=== PATIENT | female | born 1955 | race Caucasian/White ===

== ENCOUNTER 2018-07-20 12:49 | Emergency (ER) | payer BC ==
[2018-07-20] MEDS ORDERED: ASPIRIN 81 MG CHEWABLE TAB PO ONE (13:00)
[2018-07-20 13:15] LABS: PLATELET COUNT 216 10^3/uL (150-400)
[2018-07-20 13:22] LABS: INR 1.01 (0.83-1.16); PROTIME(PATIENT) 13.5 SEC (12.0-15.0)
--- NOTE | 2018-07-20 14:47 | EDPHY ---
H & P Time Seen by Provider: 07/20/18 12:59 HPI/ROS: HPI History of pericarditis, chest pain. 63-year-old female by private vehicle with friend. This patient has a history of pericarditis. She is currently being managed by [facility]. She has been on colchicine. She has a history of renal cell carcinoma. She was taken off NSAIDs a couple of weeks ago. Her pain started to come back and she was put back on ibuprofen at 400 mg every 6 hr 5-6 days ago. She reports that she is now taking colchicine and ibuprofen. She reports that 4 days ago while she was bending over changing some curtains she had an exacerbation of her pericarditis pain. She states that this is the same pain she has had in the past. She reports that since that time her pain has been more persistent and at varying degrees of intensity. She reports the pain is worse when she is bending over. She wanted to see her car repossessor today regarding continued discomfort but was unable to get into their office and came here to be evaluated. At the time of my evaluation she is comfortable. She reports to me that she has a follow up with her car repossessor at [facility] next . ROS: Constitutional: No fever, no chills. No weakness. Eyes: No discharge. No changes in vision. ENT: No sore throat. No nasal congestion or rhinorrhea. Respiratory: No cough. Mild shortness of breath associated with her pain. Cardiac: As, no palpitations. Gastrointestinal: No abdominal pain, no vomiting, no diarrhea. Genitourinary: No hematuria. No dysuria or increased frequency with urination. Musculoskeletal: No back pain. No neck pain. No myalgias or arthralgias. Skin: No rashes. Neurological: No headache. No focal weakness or altered sensation. 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 As above. Social history: Nonsmoker. No alcohol. Here with friend. Physical Exam: General Appearance: Alert, no distress. She appears comfortable. This patient is responding to questions appropriately and in full sentences. This patient appears well-hydrated and well-nourished. Eyes: Pupils equal and round no pallor or injection. No lid edema, erythema or injection. Respiratory: There are no retractions, lungs are clear to auscultation with good air movement bilaterally. Cardiovascular: Regular rate and rhythm. No murmur. I do not appreciate a friction rub. Gastrointestinal: Abdomen is soft and nontender, no masses, bowel sounds normal. No focal tenderness at McBurney's point. No Zendejas sign. Neurological: Motor sensory function is grossly intact. Cranial nerves are normal. Gait is normal. Skin: Warm and dry, no rashes. Musculoskeletal: Neck is supple and nontender. Extremities are symmetrical. All joints range without pain or impingement. Psychiatric: No agitation. No depression. Database: EKG: EKG time is 12:56 p.m.; EKG shows a narrow complex normal sinus rhythm with a ventricular rate of 74. Left atrial enlargement noted. The ID, QRS, QT intervals are within normal limits. There are no ST-T wave changes indicative of ischemic or injury pattern. No evidence of electrical alternans. No evidence of right heart strain. Interpreted by me. Imaging: Chest x-ray AP portable; the cardiac mediastinal silhouette is unremarkable. No evidence of infiltrate or pneumothorax. No acute cardiopulmonary disease process noted. Interpreted by me. Procedures: Emergency department course: Triage vital signs reviewed. She is hypertensive. Chills vital signs otherwise normal. She declines any pain medication. IV placed. She was placed on a phototypesetting equipment monitor. EKG obtained and reviewed by myself. 12:40 p.m., patient re-evaluated. Resting comfortably at this time. She appears relaxed. I discussed results of her emergency department workup. These results have been reassuring. I discussed admitting her to the hospital for observation and further testing. She does not want to be admitted and climbs further testing. The patient competently engages in shared decision making. She demonstrate capacitance to make decisions. In my professional opinion she understands the risks of her condition and declining admission. She has a scheduled appointment to follow up with her car repossessor next July 27. She can easily return to the emergency department if her pain worsens or changes. She was discharged from the emergency department in good condition with her friend. Differential Diagnosis: The differential diagnosis on this patient includes but is not limited to pericarditis. Pulmonary embolism, acute coronary syndrome, myocarditis, pneumonia, pneumothorax, aortic dissection, clinically significant pericardial effusion unlikely. This represents a partial list of diagnoses considered. These considerations are based on history, physical exam, past history, reassessment and diagnostic testing. Smoking Status: Never smoked Constitutional: Initial Vital Signs Temperature (C) 37.1 C 07/20/18 12:54 Heart Rate 81 07/20/18 12:54 Respiratory Rate 18 07/20/18 12:54 Blood Pressure 172/96 H 07/20/18 12:54 O2 Sat (%) 95 07/20/18 12:54 O2 Delivery Mode Room Air Allergies/Adverse Reactions: No Known Allergies Allergy (Unverified 07/20/18 13:00) Home Medications: Medication Instructions Recorded Colchicine 07/20/18 Ibuprofen 07/20/18 Multivitamin (*) 07/20/18 Medical Decision Making - Data Points Laboratory Results: Laboratory Results 07/20/18 13:02 07/20/18 13:02 Medications Given: Discontinued Medications Aspirin (Aspirin) 324 mg PO EDNOW ONE Stop: 07/20/18 13:01 Last Admin: 07/20/18 13:10 Dose: 324 mg Point of Care Test Results: Chemistry 07/20/18 13:05 POC Troponin I 0.00 ng/mL ng/mL (0.00-0.08) Departure - Departure Disposition: Home, Routine, Self-Care Clinical Impression: Pericarditis Condition: Good Instructions: Acute Pericarditis (ED) Additional Instructions: Read and follow provided instructions. Follow-up with your car repossessor as scheduled next July 27 Continue to take medication as prescribed by her car repossessor. Return to the emergency department for worsening chest pain, shortness of breath , fever or other serious concerns. Referrals: [facility] [Provider Group] - As per Instructions
[2018-07-20 15:02] VITALS: BP 131/79
--- NOTE | 2018-07-20 15:19 | CPEKG ---
Test Reason : OPEN Blood Pressure : / mmHG Vent. Rate : 074 BPM Atrial Rate : 074 BPM P-R Int : 183 ms QRS Dur : 095 ms QT Int : 389 ms P-R-T Axes : 077 024 019 degrees QTc Int : 432 ms Sinus rhythm Left atrial enlargement Confirmed by Stephanie Simmons ([id number]) on 07/20/2018 3:19:01 PM Referred By: Confirmed By:Stephanie Simmons
== END 2018-07-20 15:11 | disposition home or self-care (01) ==
DX: I31.9 Disease of pericardium, unspecified (principal)
CPT/HCPCS: 84484-PO